=== PATIENT | female | born 1970 | race Caucasian/White ===

== ENCOUNTER 2018-10-28 19:10 | Emergency (ER) | payer OTHER ==
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
[2018-10-28 20:03] LABS: PLATELET COUNT, AUTOMATED 257 K/uL (150-450)
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
[2018-10-28 23:00] VITALS: BP 117/82
--- NOTE | 2018-10-28 23:26 | EKG ---
[place] [facility] [place] NAME: DEMOND KEBEDE : [id number] MR: [id number] V: [id number] EXAM DATE: ORDERING PHYSICIAN: NAKUL MORGAN TECHNOLOGIST: BRINA Test Reason : LIGHT HEADEDNESS Blood Pressure : / mmHG Vent. Rate : 083 BPM Atrial Rate : 083 BPM P-R Int : 138 ms QRS Dur : 066 ms QT Int : 398 ms P-R-T Axes : 031 064 068 degrees QTc Int : 467 ms Normal sinus rhythm Normal ECG No previous ECGs available Confirmed by FREDDIE HOLDEN ([id number]) on 10/29/2018 6:39:15 AM Referred By: Confirmed By:FREDDIE HOLDEN
--- NOTE | 2018-10-28 23:27 | EKG ---
FACILITY: [facility] PATIENT NAME: DEMOND KEBEDE : [id number] MR: [id number] V: [id number] EXAM DATE: ORDERING PHYSICIAN: NAKUL MORGAN TECHNOLOGIST: BRINA Test Reason : CHEST PAIN Blood Pressure : / mmHG Vent. Rate : 078 BPM Atrial Rate : 078 BPM P-R Int : 128 ms QRS Dur : 070 ms QT Int : 402 ms P-R-T Axes : 050 058 069 degrees QTc Int : 458 ms Normal sinus rhythm Normal ECG When compared with ECG of 28-OCT-2018 19:50, No significant change was found Confirmed by FREDDIE HOLDEN ([id number]) on 10/29/2018 6:38:11 AM Referred By: Confirmed By:FREDDIE HOLDEN
== END 2018-10-28 23:25 | disposition home or self-care (01) ==
LOC: ER 19:20
DX: R55 Syncope and collapse (principal)
CPT/HCPCS: 71046; 81001; 82040; 82247; 82310; 82374; 82435; 82565; 82947; 84075; 84132; 84155; 84295; 84450; 84460; 84484; 84520; 84703; 85025; 93005; 99284